=== PATIENT | female | born 1990 | race Caucasian/White ===

== ENCOUNTER → 2024-05-02 09:48 | Outpatient (BNVA) | payer OTHER, SELFPAY | PROVIDERS: PCP Nurse Practitioner Family; Visit Provider Nurse Practitioner Family | DX: R53.83 Other fatigue (principal); I10 Essential (primary) hypertension; H61.20 Impacted cerumen, unspecified ear; H61.23 Impacted cerumen, bilateral; T14.90XA Injury, unspecified, initial encounter; W57.XXXA Bitten or stung by nonvenomous insect and other nonvenomous arthropods, initial encounter | CPT/HCPCS: 80053; 80061; 82607; 83550; 84439; 84443; 85025; 86003; 86008; 86618; 86666; 86757 ==